=== PATIENT | female | born 1975 | race African-American/Black ===

== ENCOUNTER 2020-08-12 19:54 | Emergency (ER) | payer BC ==
[2020-08-12 20:36] VITALS: BP 116/75; PULSE 79; RESP 16; TEMP 97.8
--- NOTE | 2020-08-12 21:19 | XR ---
EXAMINATION TYPE: XR ankle complete RT DATE OF EXAM: 08/12/2020 COMPARISON: None HISTORY: Animal bite TECHNIQUE: Right ankle is examined in 2 projections. FINDINGS: No acute osseous abnormality is evident. The ankle mortise is intact. Subcutaneous air is present through the region of the right ankle. No radiopaque foreign bodies are e vident. Milder subcutaneous emphysema is through the lateral distal calf region. IMPRESSION: 1. No acute osseous abnormality. 2. Soft tissue emphysema present about the distal calf and proximal ankle. 3. No radiopaque foreign bodies evident
--- NOTE | 2020-08-12 21:21 | XR ---
EXAMINATION TYPE: XR foot limited RT DATE OF EXAM: 08/12/2020 COMPARISON: None HISTORY: Minimal by TECHNIQUE: 2 view right foot FINDINGS: No acute fractures or dislocations are evident. Soft tissues of the foot appear normal. No radiopaque foreign bodies are evident. Please also see right ankle dictation same date. IMPRESSION: 1. Normal 2 view right foot. 2. Soft tissue injury distal ankle with subcutaneous emphysema.
[2020-08-12] MEDS ORDERED: KETOROLAC 15 MG/ML 1 ML VIAL IM STA (22:59)
[2020-08-12] MEDS ORDERED: LIDOCAINE 1% INJ 10MG/ML (20 ML MDV) SQ ONE (22:59)
[2020-08-12] MEDS ORDERED: BACITRACIN OINT 1 EACH PACKET TOPICAL ONE (22:59)
[2020-08-12] MEDS ORDERED: DIPH,PERTUS(ACELL)TETVAC-LF 0.5 ML VIAL IM ONE (22:59)
[2020-08-12] MEDS ORDERED: AMOXIC-POT CLAV 875-125MG 1 EACH TAB PO STA (22:59)
--- NOTE | 2020-08-13 00:29 | ED ---
Animal Bite HPI - General Chief Complaint: Animal Bite Stated Complaint: dog bite R leg Source: patient Mode of arrival: ambulatory Limitations: no limitations - History of Present Illness Initial Comments: Patient is a 45-year-old female presenting to the emergency Department with complaints of a dog bite to her right lower extremity. Patient states her brought home a new dog and it began to fight with her old dog, she tried to break them up and the new dog bit her on the right lower leg. The dog is up-to-date with vaccines including rabies. Patient is unsure of her tetanus vaccine. She did not take any Tylenol or Motrin before arrival. She denies being on blood thinners. Bleeding is controlled. She has no further complaints. - Related Data Previous Rx's Medication Instructions Recorded Amoxicillin/Potassium Clav 1 tab PO BID 7 Days #14 tab 08/13/20 [Augmentin 875-125 Tablet] Allergies Allergy/AdvReac Type Severity Reaction Status Date / Time No Known Allergies Allergy Verified 08/12/20 20:33 Review of Systems ROS Statement: Those systems with pertinent positive or pertinent negative responses have been documented in the HPI. ROS Other: All systems not noted in ROS Statement are negative. Past Medical History Past Medical History: No Reported History History of Any Multi-Drug Resistant Organisms: None Reported Past Surgical History: Breast Surgery Additional Past Surgical History / Comment(s): dnc Past Psychological History: No Psychological Hx Reported Smoking Status: Never smoker Past Alcohol Use History: None Reported Past Drug Use History: None Reported General Exam - General Exam Comments Initial Comments: GENERAL: Patient is well-developed and well-nourished. Patient is nontoxic and in no acute distress. HEAD: Atraumatic, normocephalic. EYES: Pupils equal round and reactive to light, extraocular movements intact, sclera anicteric, conjunctiva are normal. Eyelids were unremarkable. ENT: Nares patent, oropharynx clear without exudates. Moist mucous membranes. NECK: Normal range of motion, supple without lymphadenopathy or JVD. LUNGS: Unlabored respirations. Breath sounds clear to auscultation bilaterally and equal. No wheezes rales or rhonchi. HEART: Regular rate and rhythm without murmurs, rubs or gallops. ABDOMEN: Soft, nontender, normoactive bowel sounds. : Deferred MUSCULOSKELETAL: Patient has full range of motion of her right ankle and lower leg. Her strength is 5/5. Neurovascular intact, mild to moderate swelling present around the dog bite wounds. No clubbing or cyanosis. NEUROLOGICAL: Patient is alert and oriented x 3. Normal speech, normal gait. PSYCH: Normal mood, normal affect. SKIN: Warm, Dry, normal turgor, no rashes. Patient has 3 very small puncture wounds of her right lower leg, she has another 0.5 cm puncture wound on the lateral aspect of the right lower leg. Patient also has a large 5 cm laceration to the medial aspect of the lower leg. Limitations: no limitations Course Vital Signs 08/12/20 20:33 Temperature 97.8 F Pulse Rate 79 Respiratory 16 Rate Blood Pressure 116/75 O2 Sat by Pulse 100 Oximetry Procedures - Laceration Laceration #1 Consent Obtained: verbal consent Indication: laceration Site: lower extremity (Right lateral lower leg) Size (cm): 0 (0.5 cm) Description: irregular Depth: simple, single layer Anesthetic Used: lidocaine 1% Anesthesia Technique: local infiltration Amount (mls): 2 Pre-repair: irrigated extensively Type of Sutures: nylon Size of Sutures: 4-0 Number of Sutures: 2 Technique: simple, interrupted Patient Tolerated Procedure: well Laceration #2 Consent Obtained: verbal consent Indication: laceration Site: lower extremity (Right medial lower leg) Size (cm): 5 Description: irregular Depth: simple, single layer Anesthetic Used: lidocaine 1% Anesthesia Technique: local infiltration Amount (mls): 6 Pre-repair: irrigated extensively Type of Sutures: nylon Size of Sutures: 4-0 Number of Sutures: 5 Technique: simple, interrupted Patient Tolerated Procedure: well Additional Comments: Given that this is an animal bite, incision was loosely approximated. Medical Decision Making - Medical Decision Making Patient is a 45-year-old female here with a dog bite wounds to the right lower leg. Bleeding is controlled. Her tetanus vaccine was updated today. The dog's rabies and other vaccines are up-to-date. Patient had a few minor puncture wounds along with a 0.5 cm laceration to the lateral aspect and a larger 5 cm wound to the medial aspect of the right lower leg. Ankle x-ray reveals no acute bony abnormality, soft tissue emphysema present along the distal calf and pr oximal ankle, consistent with puncture wounds. These wounds were cleaned, closed with sutures, she tolerated procedures well. Patient will be started on antibiotics, first dose given here in the ER. Recommended ibuprofen, ice the area for pain and swelling control. She will have sutures removed in 7-10 days. She is stable for discharge and she is in agreement with this plan of care. Return parameters were discussed with her and she verbalized understanding. Case discussed with Dr. Macario. Disposition Clinical Impression: Dog bite of right lower leg Disposition: HOME SELF-CARE Condition: Stable Instructions (If sedation given, give patient instructions): Animal Bite (ED), Care For Your Stitches (ED) Additional Instructions: Please return to the Emergency Department if symptoms worsen or any other concerns. Keep area clean and dry, wash with mild soap and water once to twice daily. Stitches need to be removed in 7-10 days as discussed. Take antibiotics as prescribed. Apply ice to the area, ibuprofen for pain and swelling control. Prescriptions: Amoxicillin/Potassium Clav [Augmentin 875-125 Tablet] 1 tab PO BID 7 Days #14 tab Is patient prescribed a controlled substance at d/c from ED?: No Referrals: Nonstaff,Physician [Primary Care Provider] - 1-2 days Time of Disposition: 00:29
== END 2020-08-13 00:36 | disposition home or self-care (01) ==
LOC: EC 19:54
DX: S81.851A Open bite, right lower leg, initial encounter (principal); W54.0XXA Bitten by dog, initial encounter; Y93.89 Activity, other specified; Y92.019 Unspecified place in single-family (private) house as the place of occurrence of the external cause
CPT/HCPCS: 73610; 73620; 90715; 99283; 12002; J2001; J1885